=== PATIENT | female | born 1960 | race Caucasian/White ===

== ENCOUNTER 2017-05-07 14:35 | Emergency (ER) | payer OTHER ==
[2017-05-07 14:53] VITALS: RESP 18; TEMP 99.3
[2017-05-07] MEDS ORDERED: NS 1,000 ML IV ONE (15:14)
[2017-05-07] MEDS ORDERED: PROMETHAZINE HCL 25 MG/ML INJ IVP ONE (15:24)
--- NOTE | 2017-05-07 15:30 | EDPHY ---
General Narrative: CHIEF COMPLAINT: Flu-like symptoms HISTORY OF PRESENT ILLNESS: Patient complains of myalgias, sore throat, cough, congestion, runny nose, nausea and vomiting. Symptoms started abruptly late Thursday night into Thursday. No chest pain. No shortness of breath. No neck pain or stiffness. Spouse has similar symptoms that started on Thursday. His symptoms are more severe than hers. She has attempted [id number] cough medications and acetaminophen with minimal improvement. Symptoms are worse at night when she lays down. They are somewhat improved today. No rash. No other associated complaints or modifying factors. REVIEW OF SYSTEMS: Ten systems reviewed and are negative unless otherwise noted in the HPI PCP: Dr. Flores SPECIALISTS: None PAST MEDICAL HISTORY: No ongoing medical problems PAST SURGICAL HISTORY: No recent surgeries SOCIAL HISTORY: Nonsmoker. No drug or alcohol use. Lives and works locally FAMILY HISTORY: Noncontributory EXAMINATION General Appearance: Alert, no distress Head: normocephalic, atraumatic Eyes: Pupils equal and round, no conjunctival pallor or injection ENT, Mouth: Mucous membranes moist. Airway widely patent. There is posterior erythema without exudate or edema. Neck: Normal inspection, supple, non-tender. No meningeal signs. No rigidity Respiratory: Mild rhonchi. No wheezing. No crackles. No diminishment or retractions Cardiovascular: Regular rate and rhythm. No murmur Gastrointestinal: Abdomen is soft and nontender. No distention Back: non-tender, no bony abnormalities Neurological: GCS 15. A&O, nonfocal, normal gait Skin: Warm and dry, no rash. No petechiae or purpura Extremities: Nontender, no pedal edema Psychiatric: Mood and affect normal DIFFERENTIAL DIAGNOSES: Including but not limited to influenza, pneumonia, bronchitis, viral illness, dehydration, gastritis MDM: 3:20 p.m. Influenza type symptoms of less than 48 hr duration. Vital signs are within normal limits. No hypoxia. No acute distress. I have laboratory studies, IV fluid resuscitation, nausea medication. Patient is requesting Tamiflu treatment prior to test results. Her spouse has similar complaints but more severe than her. 4:30 p.m. CBC and chemistry unremarkable. She is positive for influenza B. vital signs remained stable with normal oxygenation on room air. She is in no distress and requires no supplemental oxygen. Do feel she is stable for discharge home with symptomatic medications and Tamiflu as she is within the 48 hr window for treatment. She is comfortable with this plan. She is discharged home stable condition. SUPERVISION: Patient was independently examined, but I discussed the case with my secondary supervising physician Dr. Vargas - History Smoking Status: Never smoked - Objective Vital Signs: Initial Vital Signs Temperature (C) 99.3 F 05/07/17 14:50 Heart Rate 95 05/07/17 14:50 Respiratory Rate 18 05/07/17 14:50 Blood Pressure 118/83 H 05/07/17 14:50 O2 Sat (%) 96 05/07/17 14:50 O2 Delivery Mode Room Air Allergies/Adverse Reactions: Sulfa (Sulfonamide Antibiotics) Allergy (Verified 05/07/17 14:53) Home Medications: Medication Instructions Recorded Acetaminophen/Codeine 300/30Mg 1 each PO Q6 PRN #15 tab 05/07/17 [Tylenol #3 (*)] Albuterol [Proventil Inhaler HFA 1 - 2 puffs IH Q4H PRN #1 mdi 05/07/17 (*)] Ondansetron Odt [Zofran Odt 4 mg 4 mg PO Q6 PRN #12 tab 05/07/17 (*)] Oseltamivir Phosphate [Tamiflu 75 75 mg PO BID #10 cap 05/07/17 mg (*)] Laboratory Results: Laboratory Results 05/07/17 15:42 05/07/17 15:42 05/07/17 05/07/17 05/07/17 15:42 15:42 15:42 WBC 4.93 10^3/uL 10^3/uL (3.80-9.50) RBC 4.46 10^6/uL 10^6/uL (4.18-5.33) Hgb 14.8 g/dL g/dL (12.6-16.3) Hct 41.6 % % (38.0-47.0) MCV 93.3 fL fL (81.5-99.8) MCH 33.2 pg pg (27.9-34.1) MCHC 35.6 g/dL g/dL (32.4-36.7) RDW 11.9 % % (11.5-15.2) Plt Count 210 10^3/uL 10^3/uL (150-400) MPV 10.4 fL fL (8.7-11.7) Neut % (Auto) 64.1 % % (39.3-74.2) Lymph % (Auto) 21.3 % % (15.0-45.0) [place] % (Auto) 14.0 % H % (4.5-13.0) Eos % (Auto) 0.2 % L % (0.6-7.6) Baso % (Auto) 0.2 % L % (0.3-1.7) Nucleat RBC Rel Count 0.0 % % (0.0-0.2) Absolute Neuts (auto) 3.16 10^3/uL 10^3/uL (1.70-6.50) Absolute Lymphs (auto) 1.05 10^3/uL 10^3/uL (1.00-3.00) Absolute Monos (auto) 0.69 10^3/uL 10^3/uL (0.30-0.80) Absolute Eos (auto) 0.01 10^3/uL L 10^3/uL (0.03-0.40) Absolute Basos (auto) 0.01 10^3/uL L 10^3/uL (0.02-0.10) Absolute Nucleated RBC 0.00 10^3/uL 10^3/uL (0-0.01) Immature Gran % 0.2 % % (0.0-1.1) Immature Gran # 0.01 10^3/uL 10^3/uL (0.00-0.10) Sodium 139 mEq/L mEq/L (135-145) Potassium 4.4 mEq/L mEq/L (3.5-5.2) Chloride 105 mEq/L mEq/L (97-110) Carbon Dioxide 20 mEq/l L mEq/l (22-31) Anion Gap 14 mEq/L mEq/L (8-16) BUN 10 mg/dL mg/dL (7-23) Creatinine 0.6 mg/dL mg/dL (0.6-1.0) Estimated GFR > 60 Glucose 92 mg/dL mg/dL (70-100) Calcium 9.8 mg/dL mg/dL (8.5-10.4) Total Bilirubin 0.4 mg/dL mg/dL (0.1-1.4) Conjugated Bilirubin 0.2 mg/dL mg/dL (0.0-0.5) Unconjugated Bilirubin 0.2 mg/dL mg/dL (0.0-1.1) AST 40 IU/L IU/L (14-46) ALT 53 IU/L H IU/L (9-52) Alkaline Phosphatase 66 IU/L IU/L (38-126) Total Protein 7.5 g/dL g/dL (6.3-8.2) Albumin 4.6 g/dL g/dL (3.5-5.0) Lipase 105 IU/L IU/L (23-300) Nasal Influenza A PCR NEGATIVE FOR FLU A (NEGATIVE) Nasal Influenza B PCR FLU B DETECTED (NEGATIVE) Medications Given: Discontinued Medications Sodium Chloride (Ns) 1,000 mls @ 0 mls/hr IV EDNOW ONE; Wide Open PRN Reason: Protocol Stop: 05/07/17 15:15 Last Admin: 05/07/17 15:40 Dose: 1,000 mls Promethazine HCl (Phenergan) 12.5 mg IVP ONCE ONE Stop: 05/07/17 15:25 Last Admin: 05/07/17 15:54 Dose: 12.5 mg Departure - Departure Disposition: Home, Routine, Self-Care Clinical Impression: Influenza Condition: Good Instructions: Ibuprofen (By mouth), Dextromethorphan (By mouth), Influenza (ED) Additional Instructions: 1. Medications as prescribed as needed 2. Contact her primary care physician for outpatient follow-up 4. Contact precautions as discussed 4. ED precautions as discussed Referrals: Brandy Flores MD [Primary Care Provider] - As per Instructions Prescriptions: Acetaminophen/Codeine 300/30Mg [Tylenol #3 (*)] 1 each PO Q6 PRN #15 tab PRN Reason: Cough, Mild Albuterol [Proventil Inhaler HFA (*)] 1 - 2 puffs IH Q4H PRN #1 mdi PRN Reason: Short Of Breath/Dyspnea Ondansetron Odt [Zofran Odt 4 mg (*)] 4 mg PO Q6 PRN #12 tab PRN Reason: Nausea/Vomiting, Use 1st Oseltamivir Phosphate [Tamiflu 75 mg (*)] 75 mg PO BID #10 cap
[2017-05-07 15:55] LABS: PLATELET COUNT 210 10^3/uL (150-400)
[2017-05-07] MEDS ORDERED: ACETAMINOPHEN 500 MG TAB ONE (16:59)
[2017-05-07] MEDS ORDERED: ACETAMINOPHEN 500 MG TAB PO ONE (17:00)
[2017-05-07 17:12] VITALS: BP 152/89; PULSE 70; O2SAT 97
== END 2017-05-07 17:11 | disposition home or self-care (01) ==
DX: J11.1 Influenza due to unidentified influenza virus with other respiratory manifestations (principal); E86.9 Volume depletion, unspecified
CPT/HCPCS: 96374; J2550